=== PATIENT | female | born 1985 | race Two or more races ===

== ENCOUNTER 2019-01-05 20:28 | Observation (INO) | payer MEDICAID | END 2019-01-06 00:30 | disposition home or self-care (01) | LOC: 8 EST LDRP 20:28 | PROVIDERS: ADMIT Obstetrics & Gynecology; ATTEND Obstetrics & Gynecology | DX: O62.9 Abnormality of forces of labor, unspecified (principal); Z3A.37 37 weeks gestation of pregnancy | CPT/HCPCS: 99281; G0378 ==